=== PATIENT | female | born 1965 | race Caucasian/White ===

== ENCOUNTER 2024-01-27 14:48 | Inpatient (IN) | payer OTHER ==
[2024-01-27 15:40] VITALS: BMI 29.2
[2024-01-27] MEDS ORDERED: chlordiazePOXIDE HCL 25 MG CAPSULE PO PRN (15:52)
[2024-01-27] MEDS ORDERED: P-EPHED 60MG/TRIPROLIDI 2.5MG TABLET PO PRN (16:01)
[2024-01-27] MEDS ORDERED: BENZOCAINE/MENTHOL (CHLORASEPTIC ) LOZENGE MM PRN (16:01)
[2024-01-27] MEDS ORDERED: MAGNESIUM HYDROX 2400MG/30ML ORAL SUSPENSION 30 ML CUP PO PRN (16:01)
[2024-01-27] MEDS ORDERED: ONDANSETRON *ODT* 4 MG TABLET SL PRN (16:01)
[2024-01-27] MEDS ORDERED: IBUPROFEN 400 MG TABLET (FP) PO PRN (16:01)
[2024-01-27] MEDS ORDERED: POLYETHYLENE GLYCOL (HEALTHYLAX) 3350 17 GM PACKET PO PRN (16:01)
[2024-01-27] MEDS ORDERED: LOPERAMIDE HCL 2 MG CAPSULE PO PRN (16:01)
[2024-01-27] MEDS ORDERED: ACETAMINOPHEN 325 MG TABLET (FP) PO PRN (16:01)
[2024-01-27] MEDS ORDERED: guaiFENesin 600 MG TABLET.ER (FP) PO PRN (16:01)
[2024-01-27] MEDS ORDERED: BENZONATATE 200 MG CAPSULE PO PRN (16:01)
[2024-01-27] MEDS ORDERED: chlordiazePOXIDE HCL 25 MG CAPSULE ONE (17:00)
[2024-01-27] MEDS ORDERED: cloNIDine HCL 0.1 MG TABLET ONE (17:00)
[2024-01-27] MEDS: chlordiazePOXIDE HCL 25 MG CAPSULE PO SCH (17:04)
[2024-01-27] MEDS: cloNIDine HCL 0.1 MG TABLET PO ONE (17:04)
[2024-01-27] MEDS: THIAMINE 100 MG TABLET PO SCH (22:13)
[2024-01-27] MEDS: MELATONIN 5 MG TABLETS PO SCH (22:13)
[2024-01-28] MEDS ORDERED: ALBUTEROL SO4 HFA INHALER IH PRN (09:01)
[2024-01-28] MEDS: amLODIPine BESYLATE 10 MG TABLET (FP) PO SCH (10:10)
[2024-01-28] MEDS: PRENATAL VITAMINS W/ FOLIC ACID TABLET (FP) PO SCH (10:11)
[2024-01-28] MEDS: hydrOXYzine PAMOATE 25 MG CAPSULE (FP) PO PRN (10:16)
[2024-01-28 11:57] LABS: HEMATOCRIT 39.4 % (32.4-45.2); HEMOGLOBIN 13.8 GM/dL (10.7-15.3); MCH 38.2 pg (25.7-33.7); MCHC 35.1 g/dl (32.0-36.0); MEAN CELL VOLUME 108.8 fl (80-96); MEAN PLT VOLUME 8.6 fl (7.5-11.1); PLATELET COUNT 293 10^3/uL (134-434); RBC 3.62 M/mm3 (3.60-5.2); RDW 13.4 % (11.6-15.6); WHITE BLOOD COUNT 4.9 K/mm3 (4.0-10.0)
[2024-01-28 12:06] LABS: POTASSIUM 4.2 mmol/L (3.5-5.1)
[2024-01-28 12:13] LABS: CALCIUM 9.7 mg/dL (8.5-10.1)
[2024-01-28 12:14] LABS: ALBUMIN 3.9 g/dl (3.4-5.0); BLOOD UREA NITROGEN 5.8 mg/dL (7-18)
[2024-01-28 12:17] LABS: CREATININE 0.9 mg/dL (0.55-1.3)
[2024-01-28 12:18] LABS: TOT PROT 7.2 g/dl (6.4-8.2)
[2024-01-29] MEDS: chlordiazePOXIDE HCL 25 MG CAPSULE PO SCH (05:22)
[2024-01-29] MEDS: IBUPROFEN 600 MG TABLET (FP) PO PRN (10:20)
[2024-01-29 13:48] LABS: URINE APPEARANCE CLEAR; URINE BILIRUBIN NEGATIVE (NEGATIVE); URINE COLOR YELLOW; URINE GLUCOSE (UA) NEGATIVE (NEGATIVE); URINE KETONE NEGATIVE (NEGATIVE); URINE LEUK ESTERASE NEGATIVE (NEGATIVE); URINE NITRITE NEGATIVE (NEGATIVE); URINE PROTEIN NEGATIVE (NEGATIVE); URINE UROBILINOGEN 0.2 mg/dL (0.2-1.0)
[2024-01-29] MEDS: MAG HYDROX/AL HYDROX/SIMETH 30 ML UNIT-DOSE CUP PO PRN (22:45)
[2024-01-30] MEDS ORDERED: chlordiazePOXIDE HCL 10 MG CAPSULE PO PRN
[2024-01-30] MEDS: chlordiazePOXIDE HCL 10 MG CAPSULE PO SCH (05:11)
[2024-01-30] MEDS: BISMUTH SUBSALICYLATE 524 MG/30 ML PO PRN (22:40)
[2024-01-30] MEDS: DICYCLOMINE HCL 10 MG CAPSULE PO PRN (22:40)
[2024-01-31] MEDS: METHOCARBAMOL 500 MG TABLET PO PRN (01:50)
[2024-01-31] MEDS: chlordiazePOXIDE HCL 10 MG CAPSULE PO SCH (05:38)
[2024-02-01] MEDS: chlordiazePOXIDE HCL 10 MG CAPSULE PO ONE (05:35)
[2024-02-01 14:11] VITALS: RESP 18
[2024-02-01] MEDS: NALTREXONE HCL 50 MG TABLET PO SCH (17:30)
[2024-02-02 09:36] VITALS: TEMP 97.6
[2024-02-02 12:05] LABS: POTASSIUM 4.7 mmol/L (3.5-5.1)
[2024-02-02 12:08] LABS: CALCIUM 9.8 mg/dL (8.5-10.1)
[2024-02-02 12:09] LABS: BLOOD UREA NITROGEN 16.8 mg/dL (7-18)
[2024-02-02 13:16] VITALS: BP 139/85; PULSE 83
== END 2024-02-02 14:00 | disposition home or self-care (01) | DRG 775 ==
LOC: YASAS 14:48 → Y6N 16:59
PROVIDERS: ADMIT Allergy & Immunology; ATTEND Surgery
PROC: HZ2ZZZZ Detoxification Services for Substance Abuse Treatment (ICD-10-PCS; principal; 2024-01-27)
DX: F10.230 Alcohol dependence with withdrawal, uncomplicated (principal); F12.10 Cannabis abuse, uncomplicated; F10.282 Alcohol dependence with alcohol-induced sleep disorder; F10.280 Alcohol dependence with alcohol-induced anxiety disorder; F10.24 Alcohol dependence with alcohol-induced mood disorder; F32.9 Major depressive disorder, single episode, unspecified; F41.9 Anxiety disorder, unspecified; I10 Essential (primary) hypertension; J45.20 Mild intermittent asthma, uncomplicated; Z62.810 Personal history of physical and sexual abuse in childhood; Z91.410 Personal history of adult physical and sexual abuse; Z63.8 Other specified problems related to primary support group; Z63.0 Problems in relationship with spouse or partner; Z59.00 Homelessness unspecified; Z56.0 Unemployment, unspecified; Z88.5 Allergy status to narcotic agent
CPT/HCPCS: 36415; 80048; 80053; 80305; 80307; 81003; 85027; 86780; 93005; 93010